=== PATIENT | male | born 1985 | race Caucasian/White ===

== ENCOUNTER 2017-08-22 14:40 | Emergency (ER) | payer SELFPAY ==
[~2017-08-22] VITALS: Ht 182.9 cm; Wt 164.0 kg
[2017-08-22 14:43] VITALS: BP 174/103; PULSE 108; RESP 20; TEMP 98.2; O2SAT 100
--- NOTE | 2017-08-22 18:18 | PD ---
HPI Chief Complaint: GI Complaint Time Seen by Provider: 17:22 Travel History International Travel<30 days: No Contact w/Intl Traveler<30days: No Traveled to known affect area: No History of Present Illness HPI This patient complains of some small amounts of bright red rectal bleeding. Started earlier today. I having abdominal pain or presyncopal symptoms. No prior history of this. Duration one day. No alleviating factors PFSH Social History Alcohol Use: No Tobacco Use: No Substance Use: No Review of Systems General / Constitutional: No: Fever HENT: No: Headaches Cardiovascular: No: Chest Pain or Discomfort Respiratory: No: Cough Gastrointestinal: No: Vomiting Physical Exam Narrative GENERAL: Well-nourished, well-developed patient in no apparent distress. SKIN: Focused skin assessment reveals no rash and nodules. Skin is Warm and dry. HEAD: Atraumatic. Normocephalic. EYES: Pupils equal and round. No scleral icterus. No injection or drainage. ENT: No nasal bleeding or discharge. Mucous membranes pink and moist. NECK: Trachea midline. No JVD. CARDIOVASCULAR: Regular rate and rhythm. No murmur appreciated. RESPIRATORY: No accessory muscle use. Clear to auscultation. Breath sounds equal bilaterally. GASTROINTESTINAL: Abdomen soft, non-tender, nondistended. Hepatic and splenic margins not palpable. MUSCULOSKELETAL: No obvious deformities. No clubbing. No cyanosis. No edema. NEUROLOGICAL: Awake and alert. No obvious cranial nerve deficits. Motor grossly within normal limits. Normal speech. PSYCHIATRIC: Appropriate mood and affect; insight and judgment normal. Rectal: No fissure or external hemorrhoid Data Data Last Documented VS Vital Signs Date Time Temp Pulse Resp B/P (MAP) Pulse Ox O2 Delivery O2 Flow Rate FiO2 08/22/17 14:43 98.2 108 20 174/103 (126) 100 Room Air MDM Medical Decision Making Medical Screen Exam Complete: Yes Emergency Medical Condition: Yes Medical Record Reviewed: Yes Differential Diagnosis Internal hemorrhoid, diverticulosis, AV malformation Narrative Course I have reviewed the patient's electronic medical record. Patient looks clinically well. Basically asymptomatic other than anxiety. I feel lab studies would be low yield here. He has one day history of little bits of bright red bleeding. Recommend GI follow-up. They can discuss risks and benefits of invasive scope versus observation Diagnosis Primary Impression: Rectal bleeding Additional Instructions: Follow-up GI physician Avoid aspirin and anti-inflammatories and alcohol Med/Other Pt SpecificInfo: Other Disposition: 01 DISCHARGE HOME Condition: Stable Raymon Liao MD Aug 22, 2017 18:18
== END 2017-08-22 18:38 | disposition home or self-care (01) ==
LOC: NEPD 14:40
DX: K62.5 Hemorrhage of anus and rectum (principal)
CPT/HCPCS: 99282